=== PATIENT | female | born 1980 | race African-American/Black ===

== ENCOUNTER 2024-11-28 11:49 | Outpatient (CLI) | payer OTHER, MEDICAID, SELFPAY ==
--- OUTSIDE RECORDS SUMMARY | 2024-11-28 11:55 | XMS_ITS | Clinical Summary ---
Author Organization [facility] [address] [email or web address] [address] Care Team Providers Care Crosscutter Rolled Glass Name Role Phone Emerson Castanon MD Primary Care Provider [phone] Allergies No known active allergies Medications No known medications Active Problems Problem Noted Date Diagnosed Date History of excessive cerumen 07/16/2022 Resolved Problems Problem Noted Date Diagnosed Date Resolved Date Impacted cerumen of left ear 07/16/2022 07/16/2022 Encounters Date Type Department Care Team Description 10/08/2024 7:59 PM CDT - 10/08/2024 11:59 PM CDT Hospital Encounter [facility] [id number] [place] [address] Discharge Disposition: Discharge to home or self care from Last 3 Months Medical History Medical History Date Comments Asthma Ear problems Wax build up & i tching Family History Medical History Relation Name Comments Breast cancer Neg Hx Relation Name Status Comments Child X5 Social History Tobacco Use Types Packs/Day Years Used Date Smoking Tobacco: Never Smokeless Tobacco: Never Tobacco Cessation:Counseling Given: Not Answered AUDIT-C Answer Date Recorded Q1: How often do you have a drink containing alc ohol? 2-4 times a month 07/16/2022 Q2: How many drinks containi ng alcohol do you have on a typical day when you are drinking? 1 or 2 07/16/2022 Q3: How often do you have si x or more drinks on one occasion? Never 07/16/2022 Comments No Sex and Gender Information Value Date Recorded Sex Assigned at Not on file Legal Sex Female 7:17 PM REPOSSESSOR Gender Identity Female 10/02/2021 4:19 PM CDT Sexual Orientation Not on file Obstetrics History Para Term AB IAB SAB Ectopic Multiple Livin g Live Births 5 5 5 Date Outcome GA Total Labor Labor/2nd/3rd Weight Sex Type Anes PTL Sophy A1 A5 Name Clin Term Term Term Term Term Last Filed Vital Signs Vital Sign Reading Time Taken Comments Blood Pressure 118/80 06/08/2019 8:10 PM REPOSSESSOR Pulse 90 06/08/2019 8:10 PM REPOSSESSOR Temperature 37.3 C (99.1 F) 06/08/2019 8:10 PM REPOSSESSOR Respiratory Rate 20 07/16/2022 4:01 PM REPOSSESSOR Oxygen Saturation 97% 06/08/2019 8:10 PM REPOSSESSOR Inhaled Oxygen Concentration - - Weight 104.3 kg (230 lb) 07/16/2022 4:01 PM REPOSSESSOR Height 152.4 cm (5') 07/16/2022 4:01 PM REPOSSESSOR Body Mass Index 44.92 07/16/2022 4:01 PM REPOSSESSOR Plan of Treatment Health Maintenance Due Date Last Done Comments Cervical Cancer Screening 1982 Depression Screening 1982 Hepatitis C Screening 1982 Varicella Vaccines (1 of 2 - 13+ 2-dose series) 09/26/1995 Regular Well Visit/Exam 18-64 2000 Pneumococcal vaccine <65 (1 of 2 - PCV) 2001 DTaP/Tdap/Td Vaccine (7 - Td or Tdap) 08/15/2021 08/16/2011, 02/12/1998, 12/24/1987, Additional history exists Covid-19 Vaccine ( season) 2024 09/12/2020, 08/15/2020 Influenza Vaccine (Season Ended) 2025 Breast Cancer Screening-Mammogram 02/02/2025 02/03/2024 Hepatitis B Screening Completed 09/17/1998, 998 HPV Vaccines Aged Out No longer eligi ble based on patient's age to complete this topic Procedures Procedure Name Priority Date/Time Associated Diagnosis Comments SCREENING MAMMOGRAM BILATERAL W ASHUTOSH Schedule Routine, Read Routine (OP Routine) 02/03/2024 10:46 AM CDT Encounter for screening mammogram for malignant neoplasm of breast from Last 3 Months or Most Recently Relevant to Health Maintenance Results * Screening Mammogram Bilateral W Ashutosh (02/03/2024 10:46 AM CDT) Anatomical Region Laterality Modality Breast Bilateral Mammography Impressions 02/03/2024 11:03 AM CDT BI-RADS ATLAS category (overall): 1 - Negative There is no mammographic evidence of malignancy. A 1 year screening mammogram is recommended. The patient has been or will be contacted. We recommend annual screening mammography for women at average risk of breast cancer beginning at age 40, based on guidelines of the [employer] (ACR Practice Parameter for the Performance of Screening and Diagnostic Mammography) and [employer]. For women with and elevated risk of breast cancer, please refer to the ACR Practice Parameter for specific screening recommendations. The patient will be entered into a reminder system with a target due date of 1 year for her next screening exam. Narrative 02/03/2024 11:03 AM CDT Screening Mammogram Bilateral W Ashutosh: 02/03/24 The study was acquired using full field digital technology and interpreted from soft copy. 2D digital mammographic views, as well as 3D digital tomosynthesis were performed in the CC and MLO projections. CLINICAL: Encounter for screening mammogram for malignant neoplasm of breast. No relevant medical history has been documented for this patient. History of breast cancer in Neg Hx. COMPARISON: Baseline Screening Mammography. No prior mammography is available for comparison. BREAST TISSUE: The breasts are almost entirely fatty. FINDINGS: No suspicious masses, suspicious calcifications, or other suspicious findings are seen within either breast. Emerson Castanon MD [facility] [facility]ED[facility] Katerine l Result from Last 3 Months or Most Recently Relevant to Health Maintenance Insurance [employer] [facility]/PPO Address: [address] [place] [address] Care Teams Crosscutter Rolled Glass Relationship Specialty Start Date End Date Emerson Castanon MD PCP - General Internal Medicine 10/02/21
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
--- OUTSIDE RECORDS SUMMARY | 2024-11-28 11:55 | XMS_ITS | Referral Summary ---
Author Organization [facility] [address] Address [address] [place] [address] Care Team Providers Care Food Safety Coordinator Name Role Phone Emerson Castanon MD Primary Care Provider [phone] Encounters Date Type Department Care Team Description 10/08/2024 7:59 PM CDT - 10/08/2024 11:59 PM CDT Hospital Encounter [facility] [address] [place] [address] Discharge Disposition: Discharge to home or self care from Last 3 Months Allergies No known active allergies Medications No known medications Active Problems Problem Noted Date Diagnosed Date History of excessive cerumen 07/16/2022 Resolved Problems Problem Noted Date Diagnosed Date Resolved Date Impacted cerumen of left ear 07/16/2022 07/16/2022 Social History Tobacco Use Types Packs/Day Years [...] on file Legal Sex Female 7:17 PM IDENTIFICATION AND RECORDS COMMANDER Gender Identity Female 10/02/2021 4:19 PM CDT Sexual Orientation Not on file Last Filed Vital Signs Vital Sign Reading Time Taken Comments Blood Pressure 118/80 06/08/2019 8:10 PM IDENTIFICATION AND RECORDS COMMANDER Pulse 90 06/08/2019 8:10 PM IDENTIFICATION AND RECORDS COMMANDER Temperature 37.3 C (99.1 F) 06/08/2019 8:10 PM IDENTIFICATION AND RECORDS COMMANDER Respiratory Rate 20 07/16/2022 4:01 PM IDENTIFICATION AND RECORDS COMMANDER Oxygen Saturation 97% 06/08/2019 8:10 PM IDENTIFICATION AND RECORDS COMMANDER Inhaled Oxygen Concentration - - Weight 104.3 kg (230 lb) 07/16/2022 4:01 PM IDENTIFICATION AND RECORDS COMMANDER Height 152.4 cm (5') 07/16/2022 4:01 PM IDENTIFICATION AND RECORDS COMMANDER Body Mass Index 44.92 07/16/2022 4:01 PM IDENTIFICATION AND RECORDS COMMANDER Plan of Treatment Not on file Procedures Procedure Name Priority Date/Time Associated Diagnosis [...] age 42, based on guidelines of the [employer] (ACR Practice Parameter for the Performance of Screening and Diagnostic Mammography) and [employer]. For women [...] suspicious findings are seen within either breast. Result [facility] Emerson Castanon MD IMG MAMMO PROCEDURES Katerine l Result from Last 3 Months or Most Recently Relevant to Health Maintenance Insurance [facility] Care Teams Food Safety Coordinator Relationship Specialty Start Date End Date Emerson Castanon MD PCP - General Internal Medicine 10/02/21
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
--- OUTSIDE RECORDS SUMMARY | 2024-11-28 11:55 | XMS_ITS | Clinical Summary ---
Author Organization [facility] Address [address] [place] [address] Care Team Providers Care Board Stacker Name Role Phone Agnes Grimm MD Unavailable [phone] Emerson Castanon MD Primary Care Provider [phone] Allergies Active Allergy Reactions Criticality Noted Date Comments Penicillins Hives 08/31/2024 Medications fluticasone-ministerio meterol (ADVAIR DISKUS) 100-50 MCG/ACT inhaler TAKE 1 PUFF BY MOUTH EVERY 12 HOURS IN THE MORNING AND IN THE EVENING 01/18/2024 Active ferrous sulfate, 65 mg elemental, 325 (65 FE) MG tablet Take 1 tablet (325 mg total) by mouth 2 (two) times daily. 01/19/2024 Active vitamin B-12 (CYANOCOBALAMIN ) 500 MCG tablet Take 1 tablet (500 mcg total) by mouth daily. 07/08/2023 Active albuterol sulfate HFA 108 (90 Base) MCG/ACT inhaler Inhale 2 puffs into the lungs every 4 (four) hours as needed. Active Active Problems Problem Noted Date Diagnosed Date Globus sensation 08/31/2024 Other iron deficiency anemia 08/31/2024 Encounters Date Type Department Care Team Description 11/16/2024 Orders Only [facility] [address], [address] [place] [address] Kingsley John MD 11/16/2024 [facility] [address] [place] [address] Kingsley John MD Appointment Request 09/07/2024 Orders Only [facility] - [address] [place] [address] Debby Ingram NP 09/07/2024 Results Follow-Up [address] [place] [address] Debby Ingram NP CBC W/DIFF AUTOMATED, FERRITIN, IRON SAT PANEL (IRON,IBC,%SAT) 08/31/2024 9:20 AM CDT Office Visit [address] [place] [address] Debby Ingram NP New Patient (Occasional Dysphagia ) 08/31/2024 Orders Only [address], [address] [place] [address] Kingsley John MD 08/31/2024 Travel from Last 3 Months Social History Tobacco Use Types Packs/Day Years Used Date Smoking Tobacco: Never Smokeless Tobacco: Never Tobacco Cessation:Counseling Given: Not Answered Alcohol Use Standard Drinks/Week Comments Yes 0 (1 standard drink = 0.6 oz pur e alcohol) 2 glasses of wine weekly PHQ-2 Answer Date Recorded Patient Health Questionnaire-2 Score 0 08/31/2024 Comments No Sex and Gender Information Value Date Recorded Sex Assigned at Female 08/31/2024 9:13 AM CDT Legal Sex Female 7:21 PM CDT Gender Identity Not on file Sexual Orientation Not on file Last Filed Vital Signs Vital Sign Reading Time Taken Comments Blood Pressure 135/75 08/31/2024 9:13 AM CDT Pulse 86 08/31/2024 9:13 AM CDT Temperature 36.6 C (97.8 F) 08/31/2024 9:13 AM CDT Respiratory Rate 18 04/06/2024 4:24 PM COMMUNITY LEADER Oxygen Saturation 100% 08/31/2024 9:13 AM CDT Inhaled Oxygen Concentration - - Weight 106.1 kg (234 lb) 08/31/2024 9:13 AM CDT Height 152.4 cm (5') 08/31/2024 9:13 AM CDT Body Mass Index 45.7 08/31/2024 9:13 AM CDT Plan of Treatment Upcoming Encounters Date Type Department Care Team (Late st Contact Info) Description 12/05/2024 9:45 AM CDT Appointment [facility] [place] [address] Debby Ingram NP 3 [facility] [address] [place] [id number] 03/07/2025 1:30 PM CDT Hospital Encounter [facility] [address] Kingsley John MD [address] [id number] 03/07/2025 1:30 PM CDT - 03/07/2025 2:00 PM CDT Surgery [facility], [place] [address] Kingsley John MD [address] [id number] EGD Scheduled Procedures Name Priority Associated Diagnoses Date/Ti me EGD Other iron deficiency anemia Globus sensation 03/07/2025 1:30 PM CDT Health Maintenance Due Date Last Done Comments Cervical Cancer Screening Pap Smear (Age 30 to 64) Every 3 Years 1982 Annual Physical 1985 Hepatitis B Vaccines (3 of 3 - 3-dose series) 11/12/1998 09/17/1998, 02/12/1998 Hepatitis C 2000 Cervical Cancer Screening Pap with HPV Testing (Age 30 to 64) Every 5 Years 2012 Cervical Cancer Screening with HPV 2012 COVID-19 Vaccine ( season) 2024 09/12/2020, 08/15/2020 Mammogram Screening 02/02/2026 02/03/2024 DTaP, Tdap and Td Vaccines (7 - Td or Tdap) 07/08/2033 07/08/2023, 02/12/1998, 12/24/1987, Additional history exists PHQ-2 (Physician [place]) Completed 08/31/2024 HPV Vaccines Aged Out No longer eligi ble based on patient's age to complete this topic Meningococcal B Vaccine Aged Out No l onger eligible based on patient's age to complete this topic Meningococcal Vaccine Aged Out No pravin keren eligible based on patient's age to complete this topic Pneumococcal Vaccine: Pediatrics (0 to 5 Years) and At-Risk Patients (6 to 49 Years) Aged Out No longer eligible based on patient's age to complete this topic RSV Immunizations Under 20 Months Aged Out No longer eligible based on patient's age to complete this topic Goals Goal Patient Goal Type Associated Problems Recent Progress Patient-Stated? Author Autogenera misael Goal Care Plan Autogenerated Problem No Cailin Archuleta [facility] [place] Procedure Name Priority Date/Time Associated Diagnosis Comments IRON SAT PANEL (IRON,IBC,%SAT) Routine 08/31/2024 10:48 AM CDT Other iron deficiency anemia FERRITIN Routine 08/31/2024 10:48 AM CDT Other iron deficiency anemia CBC W/DIFF AUTOMATED Routine 08/31/2024 10:48 AM CDT Other iron deficiency anemia from Last 3 Months Results * (ABNORMAL) IRON SAT PANEL (IRON,IBC,%SAT) (08/31/2024 10:48 AM CDT) [facility] IRON 37(L) 40 - 190 mcg/dL [facility] IRON BINDING CAPACITY 394 250 - 450 mcg/dL (calc) [facility] % IRON SATURATION 9(L) 16 - 45 % (calc) [facility] 08/31/2024 10:4 8 AM CDT 08/31/2024 10:49 AM CDT Narrative Resulting Agency Comment Performing Organization Information: Site ID: [place] Name: [facility] Address: [id number] [place] [id number] Director: Dylan Umaña MD Debby Ingram NP LABORATORY Final Resul t [facility] [id number] [place] [address], * (ABNORMAL) CBC W/DIFF AUTOMATED (08/31/2024 10:48 AM CDT) [facility] WBC 5.0 3.8 - 10.8 Thousand/u L [facility] [place] RBC 4.29 3.80 - 5.10 Million/uL [facility] [place] HGB 10.8(L) 11.7 - 15.5 g/dL [facility] [place] HCT 35.5 35.0 - 45.0 % [facility] [place] MCV 82.8 80.0 - 100.0 fL [facility] [place] MCH 25.2(L) 27.0 - 33.0 pg [facility] [place] MCHC 30.4(L) 32.0 - 36.0 g/dL [facility] [place] Comment: For adults, a slight decrease in the calculated MCHC value (in the range of 30 to 32 g/dL) is most likely not clinically significant; however, it should be interpreted with caution in correlation with other red cell parameters and the patient's clinical condition. RDW 15.3(H) 11.0 - 15.0 % [facility] [place] PLT 264 140 - 400 Thousand/u L [facility] [place] MPV 10.8 7.5 - 12.5 fL [facility] [place] ABS. NEUTROPHILS 3,095 1,500 - 7,800 cells/uL [facility] [place] ABS. LYMPHOCYTES 1,555 850 - 3,900 cells/uL [facility] [place] ABS. MONOCYTES 300 200 - 950 cells/uL [facility] [place] ABS. EOSINOPHILS 30 15 - 500 cells/uL [facility] [place] ABS. BASOPHILS 20 0 - 200 cells/uL [facility] [place] SEG NEUTROPHILS 61.9 % [facility] [place] [place] LYMPHOCYTES 31.1 % [facility] [place] MONOCYTES 6.0 % [facility] [place] EOSINOPHILS 0.6 % [facility] [place] BASOPHILS 0.4 % [facility] [place] 08/31/2024 10:4 8 AM CDT 08/31/2024 10:49 AM CDT Narrative Resulting Agency Comment Performing Organization Information: Site ID: [place] [facility]: [facility] Address: [id number] [place] [phone] Director: Dylan Umaña us Debby Ingram NP LABORATORY Final Resul t Performing Organization Address City/State/[facility] de Phone Number [facility] Active [employer] [address] [address], * (ABNORMAL) FERRITIN (08/31/2024 10:48 AM CDT) FERRITIN 7(L) 16 - 232 ng/mL [facility] 08/31/2024 10:4 8 AM CDT 08/31/2024 10:49 AM CDT Narrative Resulting Agency Comment Performing Organization Information: Site ID: [place] Name: [facility] Address: [address] [address] Director: Dylan Umaña MD us Debby Ingram NP LABORATORY Final Resul t [facility] [address] [address], [place] [address], [place] from Last 3 Months Additional Health Concerns Active Problems Noted Date Diagnosed Date Autogenerated Problem 11/16/2024 Insurance [facility] MEDICAID Care Teams Board Stacker Relationship Specialty Start Date End Date Emerson Castanon MD [address] [place] [address] PCP - General INTERNAL MEDICINE 04/06/24 Agnes Grimm MD INTERNAL MEDICINE 03/02/24
--- OUTSIDE RECORDS SUMMARY | 2024-11-28 11:55 | XMS_ITS | Clinical Summary ---
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 Gender Identity Not on file Sexual Orientation Not on file Plan of Treatment Health Maintenance Due Date Last Done Comments Hepatitis C Virus (HCV) Screening 1982 TdaP Immunization 1982 Hepatitis B Immunization (3 of 3 - 3-dose series) 11/12/1998 09/17/1998, 02/12/1998 Pap Smear 09/26/2003 Cervical Cancer Screening (CCS) 2012 HPV/Cotest 2012 Discussion re Starting/Frequency of Mammograms 2022 Influenza Immunization (#1) 2024 SARS-COV-2 Immunization ( season) 2024 Respiratory Syncytial Virus (RSV) Immunization (Adult) (1 - 1-dose 75+ series) 2057 DTaP/Tdap/Td Immunization Discontinued 1997, 12/24/1987, 12/17/1986, Additional history exists Meningococcal Immunization (ACWY) Aged Out No longer eligible based on patient's age to complete this topic Pneumococcal Immunization Combined Aged Out No longer eligible based on patient's age to complete this topic Rotavirus Immunization Aged Out No lo nger eligible based on patient's age to complete this topic
[2024-11-28 12:09] LABS: Hematocrit 33.7 % (37.0-47.0); Hemoglobin 10.4 g/dL (12.0-15.0); Immature Granulocyte Percent A 0.4 % (0-0.5); Lymphocytes Absolute Auto 2.01 K/mm3 (0.9-3.2); Mean Corpuscular HGB Conc 30.9 g/dl (32-36); Mean Corpuscular Hemoglobin 24.5 pg (26-34); Mean Corpuscular Volume 79.3 fl (80-100); Nucleated Red Blood Cells Absolute Auto 0.000 K/mm3 (0.0-0.012); Nucleated Red Blood Cells Perc 0.0 % (0.0-0.2); Platelet Count Result 233 k/mm3 (150-375); Red Blood Count 4.25 M/mm3 (4.2-5.4); White Blood Count 5.3 K/mm3 (4.5-10.0)
== END 2024-11-28 11:50 | disposition home or self-care (01) ==
PROVIDERS: PCP Internal Medicine; Visit Provider Obstetrics & Gynecology
DX: Z01.818 Encounter for other preprocedural examination (principal); D64.9 Anemia, unspecified; D25.9 Leiomyoma of uterus, unspecified
CPT/HCPCS: 36415; 85025; 86850; 86900; 86901

== ENCOUNTER 2024-12-01 00:26 | Day surgery (SDC) | payer OTHER, MEDICAID, SELFPAY ==
[2024-11-27 14:13] VITALS: BMI 44.9
--- NOTE | 2024-11-27 14:41 | PC.NURSE ---
Report to the Outpatient Waiting Room, entrance under the green pavilion located off [facility], at time _0730 on date _12/01/24 . Planned Procedure Time: .? Time changes happen often and if your time is changed the preop area will call you the afternoon before. - You and your visitor will be asked to self-screen and do not enter if you have any COVID symptoms. Please call surgeon if you need to reschedule. - A mask is optional within the hospital at this time. Patients may have clear liquids (water, carbonated beverages, clear teas, apple juice) until 3 hours prior to surgery with a maximum of 20 ounces. - No food from midnight until time of surgery and no smoking, or chewing tobacco (or any form of nicotine). No chewing gum, candy or mints. Take only the following medications with a SIP of water on the morning of surgery: ____ALBUTEROL INHALER DO NOT STOP ANY OF YOUR OTHER PRESCRIPTION MEDICATIONS PRIOR TO SURGERY EXCEPT THE FOLLOWING Hold all vitamins and supplements for 3 days per anesthesiologist. Medications to discontinue per physician Date to take last dose Please no make-up, nail czech, hairspray, perfume, deodorant, or body powder the day of surgery.? No jewelry (including any body piercings) or valuables the day of surgery, leave them at home.? Please take a shower or bath the night before, or the morning of, surgery with an antibacterial soap.? Wear comfortable, loose fitting clothing.? BRING AN OVERNIGHT BAG - Jewelry must be removed prior to entering the operating room.? Rings and piercings that are not removed may be cut off. - The hospital will not accept responsibility for valuables.? - Please leave all valuables, including medications, at home the day of surgery. If you are going home after surgery, a licensed wheelchair driver must drive you home.? - NO public transportation without another adult if you receive anesthesia. - We recommend that an adult stay with you for 24 hours following discharge. - We also recommend that you do not drive, make important decision, drink alcoholic beverages, or take any drugs that were not prescribed by your health care provider for at least 24 hours after your discharge time. Follow any additional instructions given to you from your surgeon. Telephone instructions given to _CHUCKY and asked if any additional questions and then verbalized understanding. Patient advised to call surgeon office or pre surgery nurse liaison [phone] if any additional questions.
--- NOTE | 2024-11-28 07:29 | PM.IMHP ---
H&P: HPI History of Present Illness Date/Time: 11/28/24 07:29 Chief Complaint: Pelvic pain with enlarged uterus excessive heavy bleeding refractory to medical therapy Narrative: This is a 44-year-old grand multiparous patient with 5 previous C-sections admitted for robotic hysterectomy and bilateral salpingectomy secondary to an enlarged fibroid uterus. She complains of bleeding pain and discomfort. Her options were reviewed in great detail. She opted for definitive therapy via hysterectomy. Risks and benefits reviewed in great detail. She had all questions answered and asked to proceed Review of Systems Review of Systems: All systems reviewed & are unremarkable except as noted in HPI and below [facility] Family History Family History Grandparent Diabetes mellitus Family history of elevated blood lipids Other Hypertension Social History Social History Smoking status: Never smoker Second hand tobacco smoke exposure: No Alcohol intake: current Substance use: never Substance use type: does not use Living arrangements: with family Spiritual care concerns: No Meds Home Medications and Allergies Home Medications ?Medication ?Instructions ?Recorded ?Confirmed ?Type albuterol sulfate 90 mcg/actuation 2 inh inhalation Q4-6H PRN 11/27/24 11/27/24 History aerosol inhaler shortness of breath or wheezing Allergies Allergy/AdvReac Type Severity Reaction Status Date / Time No Known Allergies Allergy Unverified 11/27/24 14:32 Exam Const: General: cooperative, comfortable and overweight Orientation/consciousness: oriented to person, oriented to place and oriented to time Resp: Effort & Inspection: normal respiratory effort Cardio: Rate: regular rate Rhythm: regular rhythm Heart sounds: S1 normal heart sound present and S2 normal heart sound present GI: Inspection: normal to inspection and obesity : External Female Exam: normal external appearance Speculum Exam - Vagina: normal appearance of the vagina Speculum Exam - Cervix: normal appearance of the cervix Bimanual exam- vagina & uterus: enlarged bilaterally and Uterine tenderness Bimanual Exam- Adnexa, other: normal adnexae Assessment and Plan Assessment and plan (1) Excessive bleeding: Code(s): R58 - Hemorrhage, not elsewhere classified Status: Acute (2) Uterine fibroid: Code(s): D25.9 - Leiomyoma of uterus, unspecified Status: Acute (3) Enlarged uterus: Code(s): N85.2 - Hypertrophy of uterus Status: Acute Plan Will proceed with robotic total vaginal hysterectomy and bilateral salpingectomy
[2024-12-01] VITALS (15 sets, daily range): BP systolic 104–143; BP diastolic 70–99; PULSE 62–90; RESP 12–18; TEMP 36.4–36.9; O2SAT 93–100
--- OUTSIDE RECORDS SUMMARY | 2024-12-01 00:29 | XMS_ITS | Clinical Summary ---
Author Organization [facility] Address [address] [place] [address] Care Team Providers Care Documentation Improvement Specialist Name Role Phone Agnes Grimm MD Unavailable [phone] Emerson Castanon MD Primary Care Provider [phone] Allergies Active Allergy Reactions Criticality Noted Date [...] Department Care Team Description 11/16/[address] [facility] [address] [place] [address] Kingsley John MD 11/16/2024 [facility] [address] [place] [address] Kingsley John MD Appointment Request 09/07/2024 [facility] [address] [place] [phone] Debby Ingram NP 09/07/2024 Results [facility] [address] [facility] [address] [place] [address] Debby Ingram NP CBC W/DIFF AUTOMATED, FERRITIN, IRON SAT PANEL (IRON,IBC,%SAT) from Last 3 Months Social History Tobacco [...] CDT Respiratory Rate 18 04/06/2024 4:24 PM VOICE OVER ARTIST Oxygen Saturation 100% 08/31/2024 9:13 AM CDT Inhaled Oxygen Concentration - - Weight 106.1 kg (234 lb) 08/31/2024 9:13 AM CDT Height 152.4 cm (5') 08/31/2024 9:13 AM CDT Body Mass Index 45.7 08/31/2024 9:13 AM CDT Plan of Treatment Upcoming Encounters Date Type Department Care Team (Late Contact Info) Description 12/05/2024 9:45 AM CDT Appointment [facility] [address] Debby Ingram NP [facility] [address] [place] [address] 03/07/2025 1:30 PM CDT Hospital Encounter [facility] [place] [address] Kingsley John MD [address] [address] 03/07/2025 1:30 PM CDT - 03/07/2025 2:00 PM CDT Surgery [facility] [address] Kingsley John MD [address] [address] EGD Scheduled Procedures Name Priority Associated Diagnoses [...] 02/12/1998, 12/24/1987, Additional history exists PHQ-2 (Physician [place]) Completed 08/31/2024 HPV Vaccines Aged Out No [...] Care Plan Autogenerated Problem No Cailin Archuleta [facility] Additional Health Concerns Active Problems Noted Date Diagnosed Date Autogenerated Problem 11/16/[address] [place] [address] MEDICAID Care Teams Documentation Improvement Specialist Relationship Specialty Start Date End Date Emerson Castanon MD [address] [place] [address] PCP - General INTERNAL MEDICINE 04/06/24 Agnes Grimm MD INTERNAL MEDICINE 03/02/24
--- OUTSIDE RECORDS SUMMARY | 2024-12-01 00:29 | XMS_ITS | Clinical Summary ---
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
--- OUTSIDE RECORDS SUMMARY | 2024-12-01 00:29 | XMS_ITS | Clinical Summary ---
Author Organization [facility] [address] Address [address] [place] [address] Care Team Providers Care Congressional Representative Name Role Phone Emerson Castanon MD Primary Care Provider [phone] Allergies No known active allergies Medications No known medications Active Problems Problem Noted Date Diagnosed Date History of excessive cerumen 07/16/2022 Resolved Problems Problem Noted Date Diagnosed Date Resolved Date Impacted cerumen of left ear 07/16/2022 07/16/2022 Encounters Date Type Department Care Team Description 10/08/2024 7:59 PM CDT - 10/08/2024 11:59 PM CDT Hospital Encounter [facility] [address] [place] [address] Discharge Disposition: Discharge to home or self [...] on file 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 Gender Identity Female 10/02/2021 4:19 PM CDT [...] Comments Blood Pressure 118/80 06/08/2019 8:10 PM ROLL LINE OPERATOR Pulse 90 06/08/2019 8:10 PM ROLL LINE OPERATOR Temperature 37.3 C (99.1 F) 06/08/2019 8:10 PM ROLL LINE OPERATOR Respiratory Rate 20 07/16/2022 4:01 PM ROLL LINE OPERATOR Oxygen Saturation 97% 06/08/2019 8:10 PM ROLL LINE OPERATOR Inhaled Oxygen Concentration - - Weight 104.3 kg (230 lb) 07/16/2022 4:01 PM ROLL LINE OPERATOR Height 152.4 cm (5') 07/16/2022 4:01 PM ROLL LINE OPERATOR Body Mass Index 44.92 07/16/2022 4:01 PM ROLL LINE OPERATOR Plan of Treatment Health Maintenance Due Date [...] age 42, based on guidelines of the [employer] (ACR Practice Parameter for the Performance of Screening and Diagnostic Mammography) and [employer]. For women [...] seen within either breast. Emerson Castanon MD [facility] [place]AMMO PROCEDURES Katerine l Result from Last 3 Months or Most Recently Relevant to Health Maintenance Insurance [employer] [facility] HMO [facility] Care Teams Congressional Representative Relationship Specialty Start Date End Date Emerson Castanon MD PCP - General Internal Medicine 10/02/21
--- OUTSIDE RECORDS SUMMARY | 2024-12-01 00:29 | XMS_ITS | Referral Summary ---
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 Gender Identity Female 10/02/2021 4:19 PM CDT Sexual Orientation Not on file Last Filed Vital Signs Vital Sign Reading Time Taken Comments Blood Pressure 118/80 06/08/2019 8:10 PM LAND SURVEYOR MANAGER Pulse 90 06/08/2019 8:10 PM LAND SURVEYOR MANAGER Temperature 37.3 C (99.1 F) 06/08/2019 8:10 PM LAND SURVEYOR MANAGER Respiratory Rate 20 07/16/2022 4:01 PM LAND SURVEYOR MANAGER Oxygen Saturation 97% 06/08/2019 8:10 PM LAND SURVEYOR MANAGER Inhaled Oxygen Concentration - - Weight 104.3 kg (230 lb) 07/16/2022 4:01 PM LAND SURVEYOR MANAGER Height 152.4 cm (5') 07/16/2022 4:01 PM LAND SURVEYOR MANAGER Body Mass Index 44.92 07/16/2022 4:01 PM LAND SURVEYOR MANAGER Plan of Treatment Not on file Procedures [...] age 42, based on guidelines of the [employer] (ACR Practice Parameter for the Performance of Screening and Diagnostic Mammography) and [employer]. For women [...] findings are seen within either breast. Result [facility] Emerson Castanon MD IMG MAMMO PROCEDURES Katerine l Result from Last 3 Months or Most Recently Relevant to Health Maintenance Insurance [facility] HMO [facility] HMO/PPO Address: [facility] [address] [place] [address] [facility] Care Teams Custodian Manager Relationship Specialty Start Date End Date Emerson Castanon MD PCP - General Internal Medicine 10/02/21
--- OUTSIDE RECORDS SUMMARY | 2024-12-01 00:29 | XMS_ITS | Data Portability ---
Author Organization [employer] , [facility] Address [address] [place] [address] Assessment Encounter Date Assessment Date Assessment LastModified [...] vaginosis + vaginitis panel, vaginal 2023 024 [employer] [facility], [address] [place], [address], 4 09:41:43 bacterial vaginosis + vaginitis panel, vaginal 2022 023 [employer] [facility], [address] [place], [address], 3 10:09:35 biopsy, endometrial 2021 022 [email or web address], [address] [place], [address], 2 18:42:28 biopsy, tissue 2021 022 [facility], [address] [place], [address], 2 22:47:37 TSH, serum or plasma 2021 022 [facility], [address] [place], [address], 2 06:45:22 CBC w/ auto diff 2021 022 [facility], [address] [facility] [place], [address], 06:45:21 Referral None recorded. Procedures None recorded. Surgeries None recorded. Imaging US, transvagina l 2021 022 [email or web address] [id number] Not available 21:50:12 Medication Orders megestrol 40 mg tablet 2021 022 [email or web address] [id number], [address] [place] [address], [place], [address], 12:25:05 Patient TargetsNo targets recorded. Patient Instructions Encounter Date Encounter Id Patient Instructions Last Modified By Organization Details Last Modified Time 09/29/2021 [id number] endometrial biop sy information [email or web address] Not available 09/29/2021 14:56:36 07/24/2022 [id number] Patient Health Questionnaire-9* [email or web address] Not available 07/30/2022 18:00:23 A healthy lifestyle: care instructions bnotzke Not available 07/24/2022 15:08:30 substance use disorder: care instructions bnotzke Not available 07/24/2022 15:08:31 tobacco cessation bnotzke Not availabl e 07/24/2022 15:08:30 Following the [employer] Food Guide: Care Instructions bnotzke Not available 07/24/2022 15:08:30 exercise program : getting started bnotzke Not available 07/24/2022 15:08:30 contraception information bnotzke Not available 07/24/2022 15:08:31 08/26/2023 [id number] - Use boric acid suppositories for the [...] and/u L 3.8-10 .8 normal Not Available [facility] [address], [address], 07/16/2021 06:45:21 07/16/19 22 07/16/2021 CBC (INCL UDES DIFF/ PLT) red blood cell count 4.48 carlos enrique on/uL 3.80-5 .10 normal Not Available [facility] [address], [address], 07/16/2021 06:45:21 07/16/19 22 07/16/2021 CBC (INCL UDES DIFF/ PLT) hemoglobin 11.4 g/dL 11.7-1 5.5 low Not Available [facility] [address], [address], 07/16/2021 06:45:21 07/16/19 22 07/16/2021 CBC (INCL UDES DIFF/ PLT) hematocrit 36.4 % 35.0-4 5.0 normal Not Available [facility] [address], [address], 07/16/2021 06:45:21 07/16/19 22 07/16/2021 CBC (INCL UDES DIFF/ PLT) MCV 81.3 fL 80.0-1 00.0 normal Not Available [facility] [address], [address], 07/16/2021 06:45:21 07/16/19 22 07/16/2021 CBC (INCL UDES DIFF/ PLT) MCH 25.4 pg 27.0-3 3.0 low Not Available [address], [address], 07/16/2021 06:45:21 07/16/19 22 07/16/2021 CBC (INCL UDES DIFF/ PLT) MCHC 31.3 g/dL 32.0-3 6.0 low Not Available [address], [address], 07/16/2021 06:45:21 07/16/19 22 07/16/2021 CBC (INCL UDES DIFF/ PLT) RDW 16.0 % 11.0-1 5.0 high Not Available [address], [address], 07/16/2021 06:45:21 07/16/19 22 07/16/2021 CBC (INCL UDES DIFF/ PLT) platelet count 265 thous and/u L 140-40 0 normal Not Available [address], [address], 07/16/2021 06:45:21 07/16/19 22 07/16/2021 CBC (INCL UDES DIFF/ PLT) MPV 10.8 fL 7.5-12 .5 normal Not Available [address], [address], 07/16/2021 06:45:21 07/16/19 22 07/16/2021 CBC (INCL UDES DIFF/ PLT) absolute neutrophils 3832 cells /uL 1500-7 800 normal Not Available [facility] [address], [address], 07/16/2021 06:45:21 07/16/19 22 07/16/2021 CBC (INCL UDES DIFF/ PLT) absolute lymphocytes 2466 cells /uL 850-39 00 normal Not Available [address], [address], 07/16/2021 06:45:21 07/16/19 22 07/16/2021 CBC (INCL UDES DIFF/ PLT) absolute monocytes 302 cells /uL 200-95 0 normal Not Available [address], [address], 07/16/2021 06:45:21 07/16/19 22 07/16/2021 CBC (INCL UDES DIFF/ PLT) absolute eosinophils 80 cells /uL 15-500 normal Not Available [address], [address], 07/16/2021 06:45:21 07/16/19 22 07/16/2021 CBC (INCL UDES DIFF/ PLT) absolute basophils 20 cells /uL 0-200 normal Not Available [address], [address], 07/16/2021 06:45:21 07/16/19 22 07/16/2021 CBC (INCL UDES DIFF/ PLT) neutrophils 57.2 % normal Not Available [address], [address], 07/16/2021 06:45:21 07/16/19 22 07/16/2021 CBC (INCL UDES DIFF/ PLT) lymphocytes 36.8 % normal Not Available [address], [address], 07/16/2021 06:45:21 07/16/19 22 07/16/2021 CBC (INCL UDES DIFF/ PLT) monocytes 4.5 % normal Not Available [address], [address], 07/16/2021 06:45:21 07/16/19 22 07/16/2021 CBC (INCL UDES DIFF/ PLT) eosinophils 1.2 % normal Not Available [address], [address], 07/16/2021 06:45:21 07/16/19 22 07/16/2021 CBC (INCL UDES DIFF/ PLT) basophils 0.3 % normal Not Available [address], [address], 07/16/2021 06:45:21 07/16/19 22 07/16/2021 TSH W/REF KEVON TO FT4 TSH w/reflex to FT4 2.96 mIU/L normal Refer ence Range > or = 20 Years 0.40- 4.50 Pregn sobeida Range s First trime ster 0.26- 2.66 Secon d trime ster 0.55- 2.73 Third trime ster 0.43- 2.91 Not Available [address], [address], 07/16/2021 06:45:22 09/30/19 22 10/01/2021 TISSU E PATHO LOGY clinical information Postm enopa usal bleed ing Not Available [address], [address], 10/01/2021 22:47:37 09/30/19 22 10/01/2021 TISSU E PATHO LOGY pathologist Genaro holm MD Board Certi fied in Anato cassidy Patho logy and Clini katja Patho logy [phone] (elec troni c signa ture) Not Available [address], [address], 10/01/2021 22:47:37 09/30/19 22 10/01/2021 TISSU E PATHO LOGY A source Endom etriu m, biops y Not Available [address], [address], 10/01/2021 22:47:37 09/30/19 22 10/01/2021 TISSU E [...] [facility] [place] [address] [place] [address] AY, [place] [phone] Labor atory Direc tor: NÉSTOR Osorio MD Not Available [facility] [address] [address] [place], [address], 10/01/2021 22:47:37 09/30/19 22 10/01/2021 TISSU E PATHO LOGY A diagnosis Predo minan tly abund ant blood , inter mixed with scant fragm ents of endom etria l surfa ce epith elium /stro ma, and focal ezequiel al break down. Not Available [facility] [address] [place], [address], 10/01/2021 22:47:37 09/30/19 22 10/01/2021 TISSU E PATHO LOGY A comment The speci men is scant and limit ed for diagn ostic evalu ation of endom etria l patho logy. Clini katja corre latio n/fol low-u p is recom homero d. Not Available [facility] [address] , [place], [address], 10/01/2021 22:47:37 07/25/19 23 07/27/2022 VAGIN ITIS PLUS STD PANEL bacterial vaginosis BV POS negati ve abnormal Not Available [place] [facility] [address] [place], [address], 07/28/2022 10:09:35 07/25/19 23 07/27/2022 VAGIN ITIS PLUS STD PANEL vito species C. spp neg negati ve normal Not Available [place] [facility] [address] [place], [address], 07/28/2022 10:09:35 07/25/19 23 07/27/2022 VAGIN ITIS PLUS STD PANEL vito glabrata C. gla neg negati ve normal Not Available [address], [address], 07/28/2022 10:09:35 07/25/19 23 07/27/2022 VAGIN ITIS PLUS STD PANEL trichomonas vaginalis CV/TV TRICH POS negati ve abnormal Not Available [address], [address], 07/28/2022 10:09:35 07/25/19 23 07/27/2022 VAGIN ITIS PLUS STD PANEL chlamydia trachomatis CT neg negati ve normal This repor t is inten ded for us in clini katja monit oring and manag ement of patie nts. It is not inten ded for use in medic al-le gal appli catio n. Not Available [address], [address], 07/28/2022 10:09:35 07/25/19 23 07/27/2022 VAGIN ITIS PLUS STD PANEL neisseria gonorrhoeae GC neg negati ve normal This repor t is inten ded for us in clini katja monit oring and manag ement of patie nts. It is not inten ded for use in medic al-le gal appli catio n. Not Available [facility] [place] [facility] [address] [place] [address], [address], 07/28/2022 10:09:35 08/26/19 24 08/27/2023 VAGIN ITIS PANEL bacterial vaginosis BV neg negati ve normal Not Available [facility] [address] [place], [address], 08/28/2023 09:41:43 08/26/19 24 08/27/2023 VAGIN ITIS PANEL vito species C. spp POS negati ve abnormal Not Available [facility] [address] [place], [address], 08/28/2023 09:41:43 08/26/19 24 08/27/2023 VAGIN ITIS PANEL vito glabrata C. gla neg negati ve normal Not Available [address], [address], 08/28/2023 09:41:43 08/26/19 24 08/27/2023 VAGIN ITIS PANEL trichomonas vaginalis CV/TV TRICH neg negati ve normal Not Available [address], [address], 08/28/2023 09:41:43 08/30/19 22 08/29/2021 US, trans vagin al No observ ation record ed. tcarrell Amanda [address], [place], [address], 08/30/2021 11:43:08 Result Notes None recorded. Problems Name Problem SNOMED Code Status Onset Date Resolution Date Notes Provider Name and Address Organization Details Recorded Time Female genital organ symptoms 073949198 Completed 201303/12/2014 Female pelvic pain; Location : None Progress : Stable Added By: Mattie Mora Add to Current Problems : YES ProblemS tatus: Resolve Not Available [facility] 2 15:14:21 Leukorrh ea 660385593 Completed 201310/13/2014 Vaginal Discharg e; Location : None Severity : Moderate Progress : Stable Added By: Carissa Dc Add to Current Problems : YES ProblemS tatus: Resolve Not Available [facility] 20:32:50 Removal of intraute rine contrace ptive device done [id number] 9105 Completed 201310/14/2014 Removal of IUD; Location : None Severity : Moderate Progress : Stable Added By: Annia Moreno Add to Current Problems : YES ProblemS tatus: Resolve Not Available [facility] 20:32:50 Malaise and fatigue 384063526 Active 2014 Fatigue; Location : None Progress : Stable Added By: Stanislav Tello Add to Current Problems : YES ProblemS tatus: Current Not Available [facility] 2 15:14:21 Vaginiti s and vulvovag initis Completed 201407/21/2014 Bacteria l vaginosi s; Progress : Stable Added By: Stanislav Tello Add to Current Problems : NO ProblemS tatus: Resolve Not Available [facility] 2 15:14:22 Localize d superfic ial swelling of skin 644981280 Completed 201407/21/2014 Subcutan eous nodules; Progress : Stable Added By: Stanislav Tello Add to Current Problems : NO ProblemS tatus: Resolve Not Available [facility] 2 15:14:19 Trichomo nal vulvovag initis 17881653 Active 2014 Trichomo nal vulvovag initis; Location : None Progress : Stable Added By: Jane Morales Add to Current Problems : YES ProblemS tatus: Current Not Available [facility] 2 15:14:19 Noninfla mmatory disorder of the vagina 89729412 Completed 201406/15/2015 Noninfla mmatory disorder of vagina, unspecif ied; Progress : Stable Added By: Leilani Owen Add to Current Problems : NO ProblemS tatus: Resolve Not Available [facility] 2 15:14:21 Syphilis test finding 001509519 Completed 201406/15/2015 Encounte r for screenin g for infectio ns with a predomin antly sexual mode of transmis heath; Progress : Stable Added By: Leilani Owen Add to Current Problems : NO ProblemS tatus: Resolve Not Available [facility] 2 15:14:20 Urgent desire to urinate 03038952 Active 2014 Urgency of urinatio n; Location : None Progress : Stable Added By: Leilani Owen Add to Current Problems : YES ProblemS tatus: Current Not Available [facility] 2 15:14:20 Urinary tract infectio us disease 79435030 Completed 201406/15/2015 UTI; Progress : Stable Added By: Jasmin Rahman Add to Current Problems : NO ProblemS tatus: Resolve Not Available [facility] 2 18:12:17 Venereal disease screenin g Completed 201406/15/2015 Screenin g for STDs; Location : None Progress : Stable Added By: Leilani Owen Add to Current Problems : YES ProblemS tatus: Resolve Not Available [facility] 2 15:14:22 Leukorrh ea 516539669 Completed 201406/15/2015 Vaginal Discharg e; Progress : Stable Added By: Leilani Owen Add to Current Problems : NO ProblemS tatus: Resolve Vaginal Discharg e; Location : None Progress : Stable Added By: Carissa Dc Add to Current Problems : YES ProblemS tatus: Resolve; Start Date : 01/12/20 14 Not Available [facility] 2 15:14:22 Abscess of limb 269349942 Active 2014 Axillary abscess; Location : None Progress : Stable Added By: Mattie Mora Add to Current Problems : YES ProblemS tatus: Current Cutaneou s abscess of left axilla; Progress : Stable Added By: Mattie Mora Add to Current Problems : YES ProblemS tatus: Current Not Available [facility] 2 15:14:20 At high risk of sexually transmit misael infectio n 935921826 Completed 201508/23/2015 STD Screenin g; Severity : Moderate Progress : Stable Added By: Mattie Mora Add to Current Problems : NO ProblemS tatus: Resolve Not Available [facility] 1 20:32:48 Infectio n by Trichomo cleveland [id number] Completed 201508/23/2015 Trichomo niasis, unspecif ied; Progress : Stable Added By: Mattie Mora Add to Current Problems : NO ProblemS tatus: Resolve Not Available [facility] 2 15:14:20 Vaginola bial hernia Active 2015 Other specifie d noninfla mmatory disorder s of vagina; Progress : Stable Added By: Louann Kohli Add to Current Problems : YES ProblemS tatus: Current Vaginal Discharg e; Location : None Progress : Stable Added By: Louann Kohli Add to Current Problems : YES ProblemS tatus: Current Not Available [facility] 2 15:14:19 Finding of menstrua l bleeding Active 2019 Excessiv e and frequent menstrua tion with regular cycle; Progress : Stable Added By: Shey Dumont Add to Current Problems : YES ProblemS tatus: Current Not Available [facility] 2 15:14:21 Sampling of vagina for Papanico laou smear Active 2019 Encounte r for gynecolo gical examinat ion (general ) (routine ) without abnormal findings ; Progress : Stable Added By: Faby Valentine Add to Current Problems : YES ProblemS tatus: Current Not Available [facility] 2 15:14:20 Screenin g for malignan t neoplasm of cervix Active 2019 Encounte r for screenin g for malignan t neoplasm of cervix; Progress : Stable Added By: Faby Valentine Add to Current Problems : YES ProblemS tatus: Current Not Available [facility] 2 15:14:21 Notes:STD Screening (V74.5) ; OnsetDate: 06/24/2015; ResolvedDate: [...] Endometrial Biopsy completed Monica Macias DO [address] [facility], [place], [address], [employer] [facility] 09/29/2021 21:28:25 10/02/19 20 Date of Last Pap Smear completed Dorcas Jaramillo [facility] 07/24/2022 14:43:00 section completed Lala Green [facility] 08/21/2021 18:58:53 C Section completed Dorcas Jaramillo [facility] 07/24/2022 14:40:37 Imaging Results None recorded. Procedure Notes None recorded. Medical Equipment None Reported. Allergies Allergen ID Allergen Name Allergen Category Reaction Reaction Severity Criticality Documentation Date Start Date Code Code System Note Provider Name and Address Organization Details Recorded Time 409541 Product containin g penicilli n (product) medicatio n Not available Not available Not available 03/07/20212013 67783 8001 SNOMED Sever ity: Moder ate; Not Available [facility] 01:12:06 Medications Name Sig Start Date Stop Date Status Note LastModified by Organization Details LastModified Time doxycycli ne hyclate 100 mg capsule 1 Tab PO BID [id number] 01/11 completed Doxycycl ine 100mg Capsules RxNorm: 392139 Allow Substitu tion: True Refill Denied: No Not Available Not Available Not Available fluconazo le 150 mg tablet TAKE 1 TABLET BY MOUTH EVERY 72 HOURS active Not Available Not Available No t Available minocycli ne 100 mg capsule 05/22 completed Minocycl ine HCl 100mg Capsules RxNorm: 597328 Allow Substitu tion: True Refill Denied: No [...] days 05/23 completed Macrobid 100mg Capsules RxNorm: 143998 Allow Substitu tion: True Refill Denied: No For Problem: UTI Not Available Not Available Not Available Metrogel Vaginal 0.75 % (37.5 mg/5 gram) Insert 1 applicat or vaginall y QHS x5 nights. 05/22 completed MetroGel 0.75% Vaginal Gel RxNorm: 725110 Allow Substitu tion: True Refill Denied: No For Problem: Vaginal Discharg e Not Available Not Available Not Available minocycli ne 50 mg capsule 05/22 completed Minocycl ine HCl 100mg Capsules RxNorm: 954816 Allow Substitu tion: True Refill Denied: No [...] completed Bactrim DS 160mg/80 0mg Tablet RxNorm: 342042 Allow Substitu tion: True Refill Denied: No For Problem: Axillary abscess Not Available Not Available Not Available minocycli ne 50 mg tablet 05/22 completed Minocycl ine HCl 100mg Capsules RxNorm: 287998 Allow Substitu tion: True Refill Denied: No Refill Note: Auto Aged Refill DateOccu rred: 05/22/19 15 Not Available Not Available Not Available iron active Not Available Not Availa ble Not Available albuterol sulfate 07/24 completed albutero l sulfate RxNorm: 164655 Refill Denied: No Refill DateOccu rred: 09/28/19 [...] Updated DateTime 07/15/2021 157.48 cm 43.5 kg/m2 386575. 98 g 96.9 [degF] 112/78 mm[Hg] Jenniffer Carrillo [place] [facility] 2 18:00:01 Date Recorded Body height Body mass index (BMI) Body weight Body temperature Systolic And Diastolic Provider Name and Address Organization Details Last Updated DateTime 07/24/2022 157.48 cm 45 kg/m2 278941 g 97.1 [degF] 130/86 mm[Hg] Dorcas HudsonClint [place] [facility] 3 14:51:40 Date Recorded Body height Body mass index (BMI) Body weight Body temperature Systolic And Diastolic Provider Name and Address Organization Details Last Updated DateTime 08/26/2023 152.4 cm 46.9 kg/m2 989546. 89 g 97.3 [degF] 128/76 mm[Hg] Kalie Olaf [place] [facility] 4 12:29:24 Date Recorded Body height Body mass index (BMI) Body weight Body temperature Systolic And Diastolic Provider Name and Address Organization Details Last Updated DateTime 08/29/2021 157.48 cm 46.9 kg/m2 894140. 08 g 97 [degF] 112/78 mm[Hg] Jenniffer Carrillo [place] [facility] 2 17:06:20 Date Recorded Body height Body mass index (BMI) Body weight Body temperature Systolic And Diastolic Provider Name and Address Organization Details Last Updated DateTime 09/29/2021 157.48 cm 43.7 kg/m2 415680. 86 g 97.7 [degF] 112/72 mm[Hg] Lizz Beatty [facility] 2 14:41:27 Social History Question Answer Notes LastModified by Organizat ion Details LastModified Time Tobacco Smoking Status Never Smoker Lizz balderas [facility] 09/29/2021 14:43:09 Are You Blind Or Do You Have Difficulty Seeing? [email or web address] Information not available 09/29/2021 Are You Deaf [...] e-cigarettes or vape? Never used electronic cigarettes [email or web address] Information not available 07/24/2022 What is your exercise level? Occasional Information not available 09/29/2021 Mental Status None recorded. Family History Relationship Description Onset Age of this Age Resolved Age Notes LastModified by Organization Details LastModified Time Father No current problems or disability [email or web address] Not available 11/2021 18:58:57 Mother No current problems or disability [email or web address] Not available 11/2021 18:58:57 Medical History Condition Response Fibroids Y Asthma Y Gynecological History Statement/Question Response Date of [...] SNOMED-CT Code Diagnosis ICD10 Code Diagnosis Note [id number] DIONNE DOC ALVAREZ CNM [facility] [address] [place] [address] 07/15/2021 17:27:43 07/16/2021 13:20:00 Disorder of menstruation 426554738 N92.6 patient here for increased menstrual bleeding x3 months. states that this occurred once before--a few years ago--with no answer. Discussed all options for managing heavy periods including NSAID use during menstruati on, IUD, ablation, hyst consult. Patient not currently interested in any surgical management . Opting for NSAID. Motrin 800mg q8h x5 days at start of menstruati on. Rec. F [id number] DIONNE DOC ALVAREZ CNM [address] [address] 08/29/2021 16:08:13 09/01/2021 10:14:05 Heavy episode of vaginal bleeding 551699373 N93.9 Fibroid and enlarged uterus noted on TVUS. Reviewed labs from previous appt. Patient to make appt with physician as she desires surgical management of fibroid. Discussion r/t family hx of fibroids, multiple first degree relatives with hyst r/t AUB from fibroids, basic overview of treatment options [id number] Monica Macias DO [address] [address] 09/29/2021 14:24:45 09/29/2021 16:32:30 Disorder of menstruation 213173196 N92.6 Postmenopa usal bleeding 85460999 N95.0 N93.[id number] [address] 07/24/2022 14:35:12 07/24/2022 15:36:47 Gynecologic examination 23850879 Z01.419 Screening for malignant neoplasm of cervix 164564180 Z12.4 ASCCP guidelines reviewed with patient. Pap Hx: No pap collected today. Pt states understand ing and is amenable to POC. Contracept ion education 966033382 Z30.09 Contracept lukas counseling : Discussed options including OCPs, NuvaRing, Nexplanon, hormonal and copper IUDs. Discussed risks, efficacy, noncontrac eptive benefits, and side effects of each option, including risk of VTE with hormonal contracept ion and uterine perforatio n, expulsion, infection with IUD. Depression screening 171 368503 Z13.31 Screening for disorder 456692876 Z11.3 N89.9 [id number] MARKY ESTEBAN, [facility] [address] [place] [address] 08/26/2023 12:03:15 08/26/2023 13:34:54 Vaginal irritation 719689396 N89.8 The patient is experienci ng vaginal [...] Handy Member ID Guarantor Name 2023 1 [facility] [id number] Tesha Sun [id number] Tesha 08/26/2023 1 [employer] ([employer]) [id number] Tesha Sun [id number] Tesha Sun Notes Date Note Type Note Provider Name and Address Organization Details Recorded Time 07/15/2021 text/html Abnormal BleedingReported bypatient.Onset/Timin g:present cycle Duration:<7 days/month Quality:heavy DIONNE ALVAREZ CNM [address] [place], [address], [facility] 07/15/2021 23:29:07 08/29/2021 text/html Abnormal BleedingReported bypatient.Notes:Patie nt here for US recommended from previous appt. DIONNE ALVAREZ CNM [address] [place], [address], [facility] 09/09/2021 16:02:43 09/29/2021 text/html Patient with hea vy irregular menses for approximately 4 months. Had US last visit showing uterus measuring 13x9x8 cm containing 2 fibroids measuring 4cm and 5cm, patient has history of section x 5 Monica Hilario Gilberto DO [address] [facility], [place], [address], [facility] 09/29/2021 21:29:38 07/24/2022 text/html Annual GYNReport [...] to talk about ablation. MIGEL MILLAN- [address] [place], [address], [facility] 07/24/2022 15:09:21 08/26/2023 text/html Vaginal/Vulvar ProblemReported bypatient.Location:[facility] [place] Onset/Timing:occurs after menses Quality:irritation Context:sexually active; [...] sexually transmitted diseases. MARKY ESTEBAN, MANI [address] [facility], [place], [address], [facility] 08/26/2023 12:58:12 OBGyn Episode No OBEpisode recorded.
--- NOTE | 2024-12-01 06:29 | WPDHPUPDATE1 ---
History and Physical Update Update Date/Time: 12/01/24 06:29 History and Physical has been reviewed, including an updated exam of the patient. There are NO changes in the patient's condition. Risks, benefits, and alternatives have been discussed and questions answered. Patient agrees to proceed with procedure.
[2024-12-01] MEDS: ACETAMINOPHEN 500 MG TABLET 1000 MG PO ×4 (08:01→23:40)
[2024-12-01] MEDS: LACTATED RINGERS 1,000 ML 30 ML IV CONT ×2 (08:10→11:07)
--- NOTE | 2024-12-01 08:11 | P.PNAN_ITS ---
Anes - Initial Pre Proc Eval Procedure: Operation Date: 12/01/24 09:30 Proposed Procedures p Robotic Assisted Total Vaginal Hysterectomy with Bilateral Salpingectomy - Andrews Coronado MD Date/Time: 12/01/24 08:11 Surgeon: Andrews Coronado MD Pre Op Diagnosis: Excess heav bleed, enlar uterus with Fibroids Patient Data Age: 44 Gender: F Height: 1.52 m Weight: 105.3 kg Last Vital Signs Temp 36.4 C 12/01/24 07:25 Pulse 83 12/01/24 07:25 Resp 16 12/01/24 07:25 BP 143/99 H 12/01/24 07:25 Pulse Ox 100 12/01/24 07:25 O2 Del Method Room Air 12/01/24 07:25 Allergies Allergy/AdvReac Type Severity Reaction Status Date / Time No Known Allergies Allergy Unverified 11/27/24 14:32 Home Medications ?Medication ?Instructions ?Recorded ?Confirmed ?Type albuterol sulfate 90 mcg/actuation 2 inh inhalation Q4-6H PRN 11/27/24 11/27/24 History aerosol inhaler shortness of breath or wheezing hydrocodone 5 mg-acetaminophen 325 1 tablet PO Q4H PRN pain #20 tabs 12/01/24 Rx mg tablet Patient hx anesthesia problems: none Family hx anesthesia problems: none Results Review: All pre-operative results and documents have been reviewed as part of the pre- operative evaluation. [facility] Past Medical History Medical History (Updated 12/01/24 @ 08:11 by Nikunj Yi DO) Anemia Asthma Family History Family History Grandparent Diabetes mellitus Family history of elevated blood lipids Other Hypertension Social History Social History Smoking status: Never smoker Second hand tobacco smoke exposure: No Alcohol intake: current Substance use: never Substance use type: does not use Living arrangements: with family Spiritual care concerns: No Anes - Eval Final PreProcedure Day of Procedure 12/01/24 08:11 Patient weight: morbidly obese Heart: regular rate and rhythm Lungs: clear to auscultation Airway: Mallampati scale class III Neurological: alert and oriented Last oral intake: >/= 8 hours ASA classification: III Emergent: no Anesthetic plan: proceed Anesthesia type and monitoring: general ETT and standard monitoring Results Review: All pre-operative results and documents have been reviewed as part of the pre- operative evaluation. Informed Consent: The patient's anesthetic plan and its attendant risks and benefits were discussed with the patient/family/POA. Questions were solicited and answers provided to the satisfaction of the patient/family/POA.
[2024-12-01] MEDS: KETOROLAC 15 MG/ML VIAL (*BKC) IV PUSH (08:15)
[2024-12-01 08:22] LABS: BEDSIDEPREGUCG Negative (Negative)
[2024-12-01] MEDS: ceFAZolin 2 GM in SODIUM CHLORIDE 0.9% IV 50 ML 100 ML IVPB (09:32)
--- NOTE | 2024-12-01 10:43 | S_PTH ---
PATIENT: Tesha Garcia LOC: [facility] U#:[id number] AGE/SX: 44/F ROOM: RE12/01/[address]: Andrews Coronado MD : 1980 BED: DIS: 12/02/2024 SPEC #: [id number] RECD: 12/01/24 11:58 STATUS: JENNIE REQ #: [id number] WILFRED: 12/01/24 10:[address]: Andrews Freitas DEPT: [facility] Surgical RECD BY: Angela Mendoza ENTERED: 12/01/24 11:58 SP TYPE: Surgical OTHR DR: Emerson CastanonMD Tissues: A - Uterus Procedures: Hematoxylin and Eosin Stain Gross and Microscopic Level 5
--- NOTE | 2024-12-01 10:55 | W.PM.PROC2 ---
Procedure Note - Detailed Date of Procedure 12/01/24 Pre-op Diagnosis Excess heav bleed, enlar uterus with Fibroids Post-op Diagnosis Same Procedure Performed Robotic total vaginal hysterectomy bilateral salpingectomy Surgeon Andrews Coronado MD Anesthesia General Indications Is a 44 old female multiparous with markedly enlarged fibroid uterus Findings Uterus that weighed 460g upon was markedly bigger normal-appearing tubes and ovaries Description of Procedure The patient was prepped and draped in the normal sterile fashion placed in the dorsal lithotomy position. Under excellent general endotracheal anesthesia weighted speculum placed in posterior fornix vagina. Anterior lip of the cervix grasped with single-tooth tenaculum. Uterus sounded to 12cm. Serial dilatation with fragmented dilators performed followed by passes 10. ADELIA and the 3. 0.5 cold cup. Next the 16 Palestinian catheter was placed in the bladder and the weighted speculum was removed the gloves were changed. A supraumbilical incision made the Veress needle passed in the. The filled with CO2 gas [id number]. The 8mm trocar advanced in the abdomen. Downside visualized injury seen. Patient placed in and right left lateral quadrant incisions made. 8mm trocars advanced under direct visualization assuring injury. Right upper quadrant incision made the 8 trocar advanced under direct visualization assuring no injury. The robot was docked. Fair amount of adhesions were seen anteriorly in the uterus was noted be markedly enlarged. Attention was turned to the dependency counselor. The uterus was large and tortuous multiple adhesions were seen anteriorly from the omentum to the anterior abdominal wall these were easily sharply dissected to help visualization. The left round ligament was grasped, burned, cut. Anterior bladder flap was formed by sharply dissecting the peritoneum layer by layer was markedly scarred from her previous sections this was brought across the opposite round ligament which was clamped, burned, cut. Next the left fallopian tube was sharply dissected away from its ovarian complex and left attached to the uterine origin. In similar fashion on the right fallopian tube was sharply dissected away from the ovarian complex and left attached to its uterine origin. Next utero-ovarian ligament on the left was skeletonized to conserve the left ovary this was clamped, burned, cut and brought to level of previously cut round ligament. Similarly on the right conserving the right ovary, the utero-ovarian ligament was clamped, burned, cut until brought to the level of previously cut round ligament. The cardinal broad ligaments on the left were then skeletonized clamping burning cutting and following the uterus by hugging it until the large tortuous uterine vessels could be seen on the left these were multiple and were individually clamped, burned, cut. Similar fashion on the right the cardinal broad ligaments were serially skeletonized clamping burning cutting and hugging the cervix uterus until the large tortuous uterine vessels could be seen on the right these were all individually clamped, burned, cut. Blanching the uterus was noted and a colpotomy incision was made. The uterus was bivalved in order to facilitate removal and drained of about 150cc of blood inside uterus. Uterus and cervix and tubes removed through the vagina. The vagina then closed with continuous running 0V lock from edge to lateral edge the midline irrigation undertaken to clear and Bi placed over the raw surface areas. Hemostasis was assured the robot was undocked. The laps removed and accounted for the. The skin was closed with 4 Monocryl and glue. The patient was awakened went recovery in satisfactory condition. All sponge, needle, instrument counts were correct. There were no immediate complications Estimated Blood Loss 25 Drains No Packing No Pathology Yes Complications No immediate complications Condition Stable Disposition PACU
--- NOTE | 2024-12-01 11:03 | P.DS_ITS ---
DS: Admitting Diagnosis Discharge Date 12/02/2024 Admitting Diagnosis Symptomatic uterine fibroids DS: Discharge Diagnosis Discharge Diagnosis (1) Enlarged uterus: Code(s): N85.2 - Hypertrophy of uterus Status: Acute (2) Uterine fibroid: Code(s): D25.9 - Leiomyoma of uterus, unspecified Status: Acute (3) Excessive bleeding: Code(s): R58 - Hemorrhage, not elsewhere classified Status: Acute DS: Summary Hospital Course Reason for hospitalization: Patient was admitted for robotic total vaginal hysterectomy bilateral salpingectomy Hospital Course: Patient's hospital course unremarkable. She remained afebrile. She was up, voiding without difficulty, eating regular diet, ambulating, and generally without complaint. She was up, voiding without difficulty, eating regular diet, ambulating, and generally without complaints. Time Spent with Patient Time attestation: Total time spent providing and/or coordinating discharge services: Exam Const: General: cooperative, comfortable and overweight Orientation/consciousness: oriented to person, oriented to place and oriented to time Resp: Effort & Inspection: normal respiratory effort Cardio: Rate: regular rate Rhythm: regular rhythm Heart sounds: S1 normal heart sound present and S2 normal heart sound present GI: Inspection: normal to inspection and obesity : External Female Exam: normal external appearance Speculum Exam - Vagina: normal appearance of the vagina Speculum Exam - Cervix: normal appearance of the cervix Bimanual exam- vagina & uterus: enlarged bilaterally and Uterine tenderness Bimanual Exam- Adnexa, other: normal adnexae DS: Data Data Completed and Pending Pending studies at discharge: Pending at discharge 12/01/24 10:43 Surgical [PTH] Routine Labs on day of discharge: Labs from last 24 hours 12/01/24 08:20 POC Urine HCG, Qual Negative Discharge Plan Discharge Patient Disposition: Home Patient Instructions: Laparoscopic Hysterectomy (DC) Patient Language: Bengali Stand Alone Forms: General Discharge Instructions Follow-up/Referrals: Andrews Freitas MD [Physician] - Discharge Medications: New hydrocodone-acetaminophen 5-325 mg tablet 1 tablet PO Q4H PRN (Reason: pain) Qty: 20 0RF ferrous sulfate 325 mg (65 mg iron) tablet 325 mg PO BID Qty: 60 1RF No Action albuterol sulfate 90 mcg/actuation HFA aerosol inhaler 2 inh INHALATION Q4-6H PRN (Reason: shortness of breath or wheezing)
--- NOTE | 2024-12-01 12:49 | OBPPTRN ---
Patient transferred to post room #289 via bed at 12:45 Support person present. Oriented to unit, room, information board, rooming in, admission packet and security measures. Patient verbalizes understanding.
[2024-12-01] MEDS: DEXTROSE 5%/LACTATED RINGERS 1,000 ML 125 ML IV CONT (13:09)
[2024-12-01] MEDS: KETOROLAC 30 MG/ML VIAL (*BKC) IV PUSH (13:09)
[2024-12-01] MEDS: SIMETHICONE 80 MG TAB.CHEW PO ×2 (13:10→17:26)
[2024-12-01] MEDS: IBUPROFEN 600 MG TABLET PO ×2 (17:24→23:40)
[2024-12-01] MEDS: DOCUSATE SODIUM 100 MG CAPSULE PO (17:26)
[2024-12-02 04:30] VITALS: BP 130/78; PULSE 82; RESP 18; TEMP 36.8; O2SAT 100
[2024-12-02 05:01] LABS: Hematocrit 30.6 % (37.0-47.0); Hemoglobin 9.5 g/dL (12.0-15.0); Immature Granulocyte Percent A 0.4 % (0-0.5); Lymphocytes Absolute Auto 1.23 K/mm3 (0.9-3.2); Mean Corpuscular HGB Conc 31.0 g/dl (32-36); Mean Corpuscular Hemoglobin 24.7 pg (26-34); Mean Corpuscular Volume 79.5 fl (80-100); Nucleated Red Blood Cells Absolute Auto 0.000 K/mm3 (0.0-0.012); Nucleated Red Blood Cells Perc 0.0 % (0.0-0.2); Platelet Count Result 256 k/mm3 (150-375); Red Blood Count 3.85 M/mm3 (4.2-5.4); White Blood Count 10.6 K/mm3 (4.5-10.0)
[2024-12-02] MEDS: IBUPROFEN 600 MG TABLET PO (05:15)
[2024-12-02] MEDS: ACETAMINOPHEN 500 MG TABLET 1000 MG PO (05:15)
[2024-12-02 07:52] VITALS: BP 126/83; PULSE 74; RESP 18; TEMP 36.6; O2SAT 98
[2024-12-02] MEDS: DOCUSATE SODIUM 100 MG CAPSULE PO (09:47)
[2024-12-02] MEDS: SIMETHICONE 80 MG TAB.CHEW PO (09:47)
[2024-12-02] MEDS: ENOXAPARIN 40 MG/0.4 ML SYRINGE SUB-Q (09:48)
--- NOTE | 2024-12-02 10:02 | PM.GYNPNOP ---
PROOFER PREPRESS - A/P Postoperative Procedures: Procedures Operation Date: 12/01/24 09:30 Actual Procedure Side Surgeon p Robotic Assisted Total Vaginal Hysterectomy with Bilateral Salpingectomy Bilateral Andrews Coronado MD Postoperative day: 1 Postoperative status: doing well Postoperative plan: routine post-op care and discharge Time Spent With Patient Time: Total time spent is greater than 50% in coordination of care (as documented) at patient's floor/unit and/or counseling patient: Time with patient: less than 15 minutes PROOFER PREPRESS- PN:Subj Post-Op Subjective Date/time seen: 12/02/24 10:02 Subjective: patient reports feeling better, patient has no complaints, patient desires discharge, pain is well controlled and patient is tolerating oral intake Exam Narrative: abdomen soft, nt inc c/d/i PROOFER PREPRESS - PN: Obj Data Vital Signs Vital Signs: Vital Signs - 24 hr 12/01/24 11:07 12/01/24 11:20 12/01/24 11:35 Temperature 98.3 F Pulse Rate 86 80 62 Respiratory Rate 13 16 14 Blood Pressure 106/86 104/76 122/81 Pulse Oximetry 98 98 100 Oxygen Delivery Simple Face Mask Simple Face Mask Simple Face Mask Oxygen Flow Rate 8 8 8 12/01/24 11:50 12/01/24 12:05 12/01/24 12:20 Temperature Pulse Rate 82 65 71 Respiratory Rate 14 14 16 Blood Pressure 123/85 127/89 136/82 Pulse Oximetry 93 94 96 Oxygen Delivery Nasal Cannula Nasal Cannula Nasal Cannula Oxygen Flow Rate 2 2 2 12/01/24 12:35 12/01/24 12:50 12/01/24 13:10 Temperature 98.2 F Pulse Rate 65 67 Respiratory Rate 12 18 Blood Pressure 135/94 H 122/80 Pulse Oximetry 97 97 97 Oxygen Delivery Nasal Cannula Nasal Cannula Oxygen Flow Rate 2 2 12/01/24 16:07 12/01/24 16:07 12/01/24 17:34 Temperature 98.4 F Pulse Rate 87 Respiratory Rate 15 Blood Pressure 119/78 Pulse Oximetry 99 99 100 Oxygen Delivery Nasal Cannula Nasal Cannula Oxygen Flow Rate 2 2 12/01/24 18:07 12/01/24 19:00 12/01/24 19:00 Temperature 98.1 F Pulse Rate 90 Respiratory Rate 18 Blood Pressure 136/91 H Pulse Oximetry 98 99 Oxygen Delivery Nasal Cannula Room Air Oxygen Flow Rate 1 12/01/24 23:45 12/01/24 23:45 12/02/24 04:30 Temperature 98.4 F 98.2 F Pulse Rate 75 82 Respiratory Rate 18 18 Blood Pressure 135/70 130/78 Pulse Oximetry 98 100 Oxygen Delivery Room Air Oxygen Flow Rate 12/02/24 04:30 12/02/24 07:13 12/02/24 07:52 Temperature 97.9 F Pulse Rate 74 Respiratory Rate 18 Blood Pressure 126/83 Pulse Oximetry 98 Oxygen Delivery Room Air Room Air Oxygen Flow Rate Intake/Output Intake/Output: Intake & Output 11/29/24 11/30/24 12/01/24 12/02/24 23:59 23:59 23:59 23:59 Intake Total 2048.3 Output Total 600 Balance 1448.3 Meds/Results Medications: Active Medications Generic Name Dose Route Start Last Admin Trade Name Freq PRN Reason Stop Dose Admin Acetaminophen 1,000 mg 12/01/24 12:39 12/02/24 05:15 Acetaminophen 500 Mg Tablet PO 1,000 mg Q6HR PANCHO Administration Docusate Sodium 100 mg 12/01/24 17:00 12/02/24 09:47 Docusate Sodium 100 Mg Capsule PO 100 mg BID PANCHO Administration Enoxaparin Sodium 40 mg 12/02/24 09:00 12/02/24 09:48 Enoxaparin 40 Mg/0.4 Ml Syringe SUB-Q 40 mg DAILY PANCHO Administration Dextrose/Lactated Ringer's 1,000 mls @ 125 mls/hr 12/01/24 12:39 12/01/24 16:01 Dextrose 5%/Lactated Ringers IV CONT 0 mls/hr .Q8H PANCHO Infusion Ibuprofen 600 mg 12/01/24 18:00 12/02/24 05:15 Ibuprofen 600 Mg Tablet PO 600 mg Q6HR PANCHO Administration Naloxone HCl 0.1 mg 12/01/24 12:39 Naloxone Hcl 0.4 Mg/Ml Vial IV PUSH Q2M PRN Respiratory rate less than 10 Ondansetron HCl 4 mg 12/01/24 12:39 Ondansetron Inj 4 Mg/2 Ml Vial IV PUSH Q6H PRN Nausea And Vomiting Oxycodone HCl 5 mg 12/01/24 12:39 Oxycodone Hcl (*Crx) 5 Mg Tab Ir PO Q4H PRN Pain Rated 4-6 Oxycodone HCl 10 mg 12/01/24 12:39 Oxycodone Hcl (*Crx) 5 Mg Tab Ir PO Q6H PRN Pain Rated 7-10 Simethicone 80 mg 12/01/24 12:39 12/02/24 09:47 Simethicone 80 Mg Tab.Chew PO 80 mg TIDWM PANCHO Administration Labs 12/02/24 04:27 Labs: Laboratory Results - last 24 hr 12/02/24 04:27 WBC 10.6 H RBC 3.85 L Hgb 9.5 L Hct 30.6 L MCV 79.5 L MCH 24.7 L MCHC 31.0 L RDW 16.6 H Plt Count 256 MPV 10.5 H Immature Gran % (Auto) 0.4 Neut % (Auto) 81.4 H Lymph % (Auto) 11.6 L Davison % (Auto) 6.3 Eos % (Auto) 0.1 Baso % (Auto) 0.2 Lymph # (Auto) 1.23 Davison # (Auto) 0.7 H Eos # (Auto) 0.0 Baso # (Auto) 0.0 Abs Immat Gran (auto) 0.04 H Absolute Neuts (auto) 8.6 H Absolute Nucleated RBC 0.000 Nucleated RBC % 0.0
== END 2024-12-02 10:50 | disposition home or self-care (01) ==
LOC: ANHSURGERY 06:31 → ANHOB2 12:42
PROVIDERS: PCP Internal Medicine; Visit Provider Obstetrics & Gynecology
PROC: (CPT 58554; principal; 2024-12-01 09:30)
DX: D25.1 Intramural leiomyoma of uterus (principal); N93.9 Abnormal uterine and vaginal bleeding, unspecified; N88.8 Other specified noninflammatory disorders of cervix uteri; N80.03 Adenomyosis of the uterus; N83.8 Other noninflammatory disorders of ovary, fallopian tube and broad ligament; N70.11 Chronic salpingitis; E66.01 Morbid (severe) obesity due to excess calories; Z68.42 Body mass index [BMI] 45.0-49.9, adult
CPT/HCPCS: 58554; S2900; 36415; 85025; 86850; 86900; 86901; 88307; 99199; J0690; A9270; J1100; J1171; J1200; J1650; J1885; J2003; J2250; J2405; J2704; J3010; J7120; J7121